=== PATIENT | female | born 1985 | race Caucasian/White ===

== ENCOUNTER 2016-10-29 21:34 | Emergency (ER) | payer MEDICAID ==
[2016-10-29 21:43] VITALS: RESP 16; O2SAT 97
--- NOTE | 2016-10-29 21:53 | CPEKG ---
Heart Rate: 79 RR Interval: 759 P-R Interval: 140 QRSD Interval: 96 QT Interval: 376 QTC Interval: 432 P [place]: 72 QRS [place]: 84 T Wave [place]: 39 EKG Severity - NORMAL ECG - EKG Impression: SINUS RHYTHM Electronically Signed By: Maddie Norris 29-Oct-2016 22:31:52
[2016-10-29 22:08] LABS: % IMMATURE GRANULYOCYTES 0.2 % (0.0-1.1); ABSOLUTE IMMATURE GRANULOCYTES 0.02 10^3/uL (0.00-0.10); ADD DIFF? NO; ADD MORPH? NO; ADD SCAN? NO; ATYPICAL LYMPHOCYTE FLAG 20 (0-99); FRAGMENT RBC FLAG 0 (0-99); HEMATOCRIT 42.4 % (38.0-47.0); HEMOGLOBIN 14.2 g/dL (12.6-16.3); LEFT SHIFT FLG 0 (0-99); LIPEMIA HEMOLYSIS FLAG 80 (0-99); MEAN CELL HEMOGLOBIN 30.9 pg (27.9-34.1); MEAN CELL HEMOGLOBIN CONCENTR. 33.5 g/dL (32.4-36.7); MEAN CELL VOLUME 92.4 fL (81.5-99.8); MEAN PLATELET VOLUME 9.9 fL (8.7-11.7); PLATELET CLUMPS FLAG 0 (0-99); PLATELET COUNT 302 10^3/uL (150-400); RED BLOOD CELL COUNT 4.59 10^6/uL (4.18-5.33); RED CELL DISTRIBUTION WIDTH 15.7 % (11.5-15.2)
[2016-10-29 22:24] LABS: ANION GAP 11 mEq/L (8-16); CALCIUM 9.3 mg/dL (8.5-10.4); CARBON DIOXIDE 27 mEq/l (22-31); CHLORIDE 106 mEq/L (97-110); CREATININE 0.9 mg/dL (0.6-1.0); GLOMERULAR FILTRATION RATE > 60; GLUCOSE 71 mg/dL (70-100); POTASSIUM 3.9 mEq/L (3.5-5.2); SODIUM 144 mEq/L (134-144)
[2016-10-29] MEDS ORDERED: KETOROLAC 15 MG/1 ML SDV IVP ONE (22:25)
[2016-10-29] MEDS ORDERED: KETOROLAC 15 MG/1 ML SDV ONE (22:26)
[2016-10-29 22:35] LABS: TROPONIN I < 0.012 ng/mL (0-0.034)
--- NOTE | 2016-10-29 23:02 | EDPHY ---
H & P Stated Complaint: sharp/stabbing pain in chest and shoulder worse with insp/ movement HPI/ROS: Chief complaint: Chest pain History of present illness: This is a 31-year-old female who presents to the emergency department for evaluation of chest pain. Patient reports he has had pain for the last week or 2. She describes a sharp pain in the right upper chest. It radiates into the shoulder. She has had associated trouble breathing. It is worse with movement. She denies specific precipitating factors. She denies other associated signs or symptoms including no history of trauma, no fevers or cold symptoms, no pain or swelling in the legs. Review of systems: A 10 point review of systems was obtained and other than described above was negative - Personal History LMP (Females 10-55): 8-14 Days Ago Current Tetanus/Diphtheria Vaccine: Yes - Medical/Surgical History Hx Asthma: Yes Hx Chronic Respiratory Disease: No Hx Diabetes: No Hx Cardiac Disease: No Hx Renal Disease: No Hx Cirrhosis: No Hx Alcoholism: No Hx HIV/AIDS: No Hx Splenectomy or Spleen Trauma: No Other PMH: PMHx: anxiety, ADD. PSHx: rhinoplasty 2007 - Social History Smoking Status: Current some day smoker Constitutional: Initial Vital Signs Temperature (C) 37 C 10/29/16 21:39 Heart Rate 81 10/29/16 21:39 Respiratory Rate 16 10/29/16 21:39 Blood Pressure 112/67 10/29/16 21:39 O2 Sat (%) 97 10/29/16 21:39 O2 Delivery Mode Room Air Allergies/Adverse Reactions: No Known Allergies Allergy (Unverified 10/29/16 21:37) Home Medications: Medication Instructions Recorded Adderall 10 MG (*) 10/29/16 Ambien 10/29/16 Fluconazole 10/29/16 Hydrocodone/APAP 5/325 [Whit[place] 1 tab PO Q6H #6 tab 10/29/16 5/325 (*)] KLONOPIN 10/29/16 Naproxen 10/29/16 Synthroid 10/29/16 traMADol 10/29/16 Medical Decision Making - Diagnostics Imaging Results: Imaging Impressions Chest X-Ray 10/29/16 22:55 Impression: Mild peribronchial thickening suggesting airways disease/bronchitis. Imaging: I viewed and interpreted images myself ED Course/Re-evaluation: Patient is discussed with my secondary supervising physician Dr. Sophia Ford. Patient presents to the emergency department with chest pain. On presentation she is nontoxic. She is afebrile and vital signs are stable. Physical exam reveals reproducible pain on palpation of chest wall. Blood studies including D-dimer and troponin are unremarkable. EKG unremarkable. Chest x-ray unremarkable. I believe this is likely musculoskeletal pain. Patient will be discharged home. Home care is discussed including pain management. She is asked to follow up with her primary care doctor for recheck. Return precautions are given. Patient voiced understanding and agreement with plan. Differential Diagnosis: Included but not limited to musculoskeletal pain, pleurisy, pulmonary infections , pulmonary embolism, cardiac dysrhythmia, ACS, pneumothorax - Data Points Laboratory Results: Laboratory Results 10/29/16 22:00 10/29/16 22:00 10/29/16 10/29/16 10/29/16 22:00 22:00 22:00 WBC RBC Hgb Hct MCV MCH MCHC RDW Plt Count MPV Neut % (Auto) Lymph % (Auto) Beckham % (Auto) Eos % (Auto) Baso % (Auto) Nucleat RBC Rel Count Absolute Neuts (auto) Absolute Lymphs (auto) Absolute Monos (auto) Absolute Eos (auto) Absolute Basos (auto) Absolute Nucleated RBC Immature Gran % Immature Gran # D-Dimer 0.45 ug/mLFEU ug/mLFEU (0.00-0.50) Sodium 144 mEq/L mEq/L (134-144) Potassium 3.9 mEq/L mEq/L (3.5-5.2) Chloride 106 mEq/L mEq/L (97-110) Carbon Dioxide 27 mEq/l mEq/l (22-31) Anion Gap 11 mEq/L mEq/L (8-16) BUN 18 mg/dL mg/dL (7-23) Creatinine 0.9 mg/dL mg/dL (0.6-1.0) Estimated GFR > 60 Glucose 71 mg/dL mg/dL (70-100) Calcium 9.3 mg/dL mg/dL (8.5-10.4) Troponin I < 0.012 ng/mL ng/mL (0-0.034) Beta HCG, Qual NEGATIVE 10/29/16 22:00 WBC 8.58 10^3/uL 10^3/uL (3.80-9.50) RBC 4.59 10^6/uL 10^6/uL (4.18-5.33) Hgb 14.2 g/dL g/dL (12.6-16.3) Hct 42.4 % % (38.0-47.0) MCV 92.4 fL fL (81.5-99.8) MCH 30.9 pg pg (27.9-34.1) MCHC 33.5 g/dL g/dL (32.4-36.7) RDW 15.7 % H % (11.5-15.2) Plt Count 302 10^3/uL 10^3/uL (150-400) MPV 9.9 fL fL (8.7-11.7) Neut % (Auto) 65.3 % % (39.3-74.2) Lymph % (Auto) 23.8 % % (15.0-45.0) Beckham % (Auto) 8.6 % % (4.5-13.0) Eos % (Auto) 1.3 % % (0.6-7.6) Baso % (Auto) 0.8 % % (0.3-1.7) Nucleat RBC Rel Count 0.0 % % (0.0-0.2) Absolute Neuts (auto) 5.60 10^3/uL 10^3/uL (1.70-6.50) Absolute Lymphs (auto) 2.04 10^3/uL 10^3/uL (1.00-3.00) Absolute Monos (auto) 0.74 10^3/uL 10^3/uL (0.30-0.80) Absolute Eos (auto) 0.11 10^3/uL 10^3/uL (0.03-0.40) Absolute Basos (auto) 0.07 10^3/uL 10^3/uL (0.02-0.10) Absolute Nucleated RBC 0.00 10^3/uL 10^3/uL (0-0.01) Immature Gran % 0.2 % % (0.0-1.1) Immature Gran # 0.02 10^3/uL 10^3/uL (0.00-0.10) D-Dimer Sodium Potassium Chloride Carbon Dioxide Anion Gap BUN Creatinine Estimated GFR Glucose Calcium Troponin I Beta HCG, Qual Medications Given: Discontinued Medications Ketorolac Tromethamine (Toradol) 15 mg IVP EDNOW ONE Stop: 10/29/16 22:26 Last Admin: 10/29/16 22:28 Dose: 15 mg Departure - Departure Disposition: Home, Routine, Self-Care Clinical Impression: Chest pain Qualifiers: Chest pain type: unspecified Qualified Code(s): R07.9 - Chest pain, unspecified Condition: Good Instructions: Chest Pain (ED) Additional Instructions: Follow-up with your primary care doctor this week as already arranged In regards to pain control see the following: Use ibuprofen [600] mg [3] times a day for the next 2-3 days for pain In addition You have been prescribed [[place]] for pain. [Whit[place]] contains Tylenol, do not take extra Tylenol/acetaminophen/Apap with it. It is sedating. Do not take tramadol while taking [place] If symptoms worsen or new symptoms develop return to the emergency room for recheck Referrals: SON ZARCO [Primary Care Provider] - As per Instructions Prescriptions: Hydrocodone/APAP 5/325 [[place] 5/325 (*)] 1 tab PO Q6H #6 tab
[2016-10-29 23:39] VITALS: BP 114/65; PULSE 80; TEMP 98.2
== END 2016-10-29 23:38 | disposition home or self-care (01) ==
DX: R07.9 Chest pain, unspecified (principal); F17.200 Nicotine dependence, unspecified, uncomplicated; J45.909 Unspecified asthma, uncomplicated
CPT/HCPCS: 96374; J1885

== ENCOUNTER 2016-11-01 01:08 | Emergency (ER) | payer MEDICAID ==
[2016-11-01 01:15] VITALS: BP 136/73; PULSE 82; TEMP 98.2; O2SAT 97
--- NOTE | 2016-11-02 16:00 | EDPHY ---
[facility] Addendum - Addendum .: This patient left before being seen.
== END 2016-11-01 02:36 | disposition left against medical advice (07) ==
DX: Z53.21 Procedure and treatment not carried out due to patient leaving prior to being seen by health care provider (principal)

== ENCOUNTER → 2018-08-29 | Outpatient (CLI) | payer MEDICAID ==
[~2018-08-29] MED LIST: IOPAMIDOL (ISOVUE 370) 100 ML BTL IV ONE
== END ==
LOC: FIMAGING 08:01
PROVIDERS: ATTEND Obstetrics & Gynecology
PROC: 0UJ87ZZ Inspection of Fallopian Tube, Via Natural or Artificial Opening (ICD-10-PCS; principal; 2018-08-29)
DX: Z31.69 Encounter for other general counseling and advice on procreation (principal)
CPT/HCPCS: Q9967

== ENCOUNTER → 2018-09-18 | Outpatient (CLI) | payer MEDICAID | LOC: FIMAGING 12:21 | PROVIDERS: ATTEND Family Medicine | DX: R94.39 Abnormal result of other cardiovascular function study (principal) ==